=== PATIENT | male | born 1955 | race Caucasian/White ===

== ENCOUNTER 2019-01-01 12:09 | Inpatient (IN) ==
[2019-01-01 12:42] LABS: BASO# 0.03 X1000 (0.0-0.2); BASO% 0.4 % (0.0-0.8); EOS# 0.37 X1000 (0.0-0.7); EOS% 4.5 % (0.0-10.0); HEMATOCRIT 44.2 % (42.0-52.0); HEMOGLOBIN 14.9 g/dL (14.0-18.0); LYMPH# 2.01 X1000 (1.2-3.4); LYMPH% 24.3 % (20.5-51.1); MCH 30.8 PG (27-31); MCHC 33.7 g/dL (33-37); MCV 91.5 FL (81-99); MONO# 0.78 X1000 (0.11-0.59); MONO% 9.4 % (1.7-9.3); MPV 9.3 FL (7.4-10.4); NEUT# 5.08 X1000 (1.4-6.5); NEUT% 61.4 % (42.2-75.2); PLT 309 X1000 (130-400); RBC 4.83 XMIL (4.7-6.1); RDW 13.4 % (11.5-14.5); WBC 8.27 X1000 (4.8-10.8)
[2019-01-01] MEDS ORDERED: ZOFRAN IV ONE (13:07)
[2019-01-01] MEDS ORDERED: G.I. COCKTAIL PO ONE (13:08)
[2019-01-01 13:12] LABS: AGAP 10; ALB/GLOB RATIO 1.1; ALBUMIN 4.1 g/dL (3.5-5.0); ALKALINE PHOSPHATASE 65 U/L (32-122); AMYLASE 65 U/L (20-200); BUN 11 mg/dL (8-22); CALCIUM 9.6 mg/dL (8.8-10.2); CHLORIDE 103 mmol/L (98-107); COSMO 281; CREATININE 0.9 mg/dL (0.7-1.2); ESTIMATED GFR > 60; GLUCOSE 102 mg/dL (70-104); GOT 21 U/L (10-34); GPT 21 U/L (10-44); LIPASE 30 U/L (13-60); POTASSIUM 4.1 mmol/L (3.5-5.1); SODIUM 141 mmol/L (136-145); TCO2 28 mmol/L (25-35); TOTAL BILIRUBIN 0.31 mg/dL (0.20-1.00); TOTAL PROTEIN 7.9 g/dL (6.3-8.3)
[2019-01-01 13:18] LABS: URINE SOURCE CLEAN CATCH
[2019-01-01 13:21] LABS: BILIRUBIN URINE NEGATIVE (NEGATIVE); BLOOD URINE NEGATIVE (NEGATIVE); COLOR YELLOW; GLUCOSE URINE NEGATIVE (NEGATIVE); KETONE URINE NEGATIVE (NEGATIVE); LEUKOCYTES URINE TRACE (NEGATIVE); NITRITE URINE NEGATIVE (NEGATIVE); PH URINE 7.5; PROTEIN URINE NEGATIVE (NEGATIVE); TURBIDITY URINE CLEAR (CLEAR); UROBILINOGEN URINE NORMAL (NORMAL)
[2019-01-01 13:22] LABS: UR EPITHELIAL CELLS <10 /HPF (<10); URINE BACTERIA NEGATIVE /HPF; URINE RBC <10 /HPF (<10); URINE WBC <10 /HPF (<10)
--- NOTE | 2019-01-01 13:29 | Diag Imaging Result Doc PS360 ---
EXAM: CHEST-2 VIEWS HISTORY: cough TECHNIQUE: Chest two views COMPARISON: 11/24/2014 FINDINGS: The lungs are well expanded. The heart is not enlarged. The vessels are not distended. There are no infiltrates. No pleural effusions. There are scattered granuloma. IMPRESSION: No pneumonia. Electronically signed by Lalito Astorga 01/01/2019 1:26 PM
--- NOTE | 2019-01-01 14:34 | Diag Imaging Result Doc PS360 ---
EXAM: CT ABD/PELVIS W/IV CONT ONLY HISTORY: abd pain TECHNIQUE: CT abdomen and pelvis with intravenous contrast COMPARISON: None. FINDINGS: The gallbladder is contracted. There is fatty infiltration of the liver. Normal spleen, pancreas, and adrenal glands. There are small renal cysts. No hydronephrosis. Prominent atherosclerosis. No aortic aneurysm. There are scattered colonic diverticula. No bowel obstruction. Normal appendix. No abscess. No ascites. The urinary bladder is moderately distended and is normal. The prostate is not enlarged. There is a fat filled left inguinal hernia. There is also a fat filled umbilical hernia. IMPRESSION: 1.Fatty infiltration of the liver 2.Diverticulosis 3.Prominent atherosclerosis 4.Fat filled umbilical hernia and left inguinal hernia This exam was performed using automated exposure control, adjustment of mA or kV according to patient size, and/or use of iterative reconstruction technique. Electronically signed by Lalito Astorga 01/01/2019 2:31 PM
--- NOTE | 2019-01-01 16:25 | PROVIDER DOCUMENTATION ---
This chart was entered by Marina Denton Scribe, acting as scribe for William Pereira CRNP. HPI-Abdominal Pain/GI Problem - General Chief Complaint: Abdominal Pain Stated Complaint: SICK/CANT EAT/COUGHING Time Seen by Provider: 01/01/19 12:24 Source: patient Allergies/Adverse Reactions: Patient Allergies Allergy/AdvReac Type Severity Reaction Status Date / Time Sulfa (Sulfonamide Allergy Intermediate HIVES Verified 07/07/17 07:30 Antibiotics) Home Medications: Home Medication List Medication Instructions Recorded Confirmed Last Taken Type Amlodipine [Norvasc] 5 mg PO DAILY 10/30/13 07/07/17 10/30/13 07:30 History BENAZEpril [Lotensin] 20 mg PO DAILY 10/30/13 07/07/17 10/30/13 07:30 History Esomeprazole [Nexium] 40 mg PO DAILY 10/30/13 07/07/17 10/30/13 07:30 History Hydrochlorothiazide 25 mg PO DAILY 10/30/13 07/07/17 10/30/13 07:30 History Meloxicam [Mobic] 15 mg PO DAILY 10/30/13 07/07/17 10/30/13 07:30 History Trazodone [Desyrel] 100 mg PO QHS 10/30/13 07/07/17 10/29/13 21:00 History Aspirin 81 mg PO DAILY #0 chewtab 11/07/13 07/07/17 Unknown Rx Hydrocodone/Acetaminophen [[place] 1 each PO Q4-6H PRN PRN #20 tablet 07/01/15 07/07/17 Unknown Rx 5-325 Tablet] Methocarbamol [Robaxin-750] 1,500 mg PO 4XDAY #40 tablet 07/01/15 07/07/17 Unknown Rx Cyclobenzaprine [Flexeril] 10 mg PO HS #15 tablet 07/07/17 Unknown Rx Naproxen [Naprosyn] 500 mg PO BID #20 tablet 07/07/17 Unknown Rx - History of Present Illness-ABD Nature of Presenting Problems: 63yom c/o generalized abdominal pain with nausea and cough for one week. Pain is worse to left upper quadrant/left rib area. He reports the pain worsens after he eats or drinks coffee, but it also occurs at random times intermittently. He reports he is a nonsmoker. He denies fever, vomiting, diarrhea. Also reports exertional SOB that is chronic. He is non-toxic in appearance. Abdominal Pain Onset Location: reports: generalized abdomen Pain Radiation: reports: no radiation Quality of Pain: reports: aching Severity in ED: reports: mild Onset/Duration: reports: 1 week ago Timing: reports: still present, intermittent, constant Activities at Onset: reports: none Modifying Factors: improves with: nothing Associated Symptoms: reports: cough, nausea. denies: chest pain, shortness of breath Similar Symptoms Previously?: No Recently seen or treated by another doctor?: No Review of Systems - Adult - REVIEW OF SYSTEMS - ADULT Constitutional: denies: chills, fever Eyes: denies: discharge, dry eyes Ears, Nose, Mouth & Throat: denies: ear discharge, ear pain Cardiovascular: denies: chest pain, palpitations Respiratory: reports: cough. denies: shortness of breath Gastrointestinal: reports: abdominal pain, nausea. denies: diarrhea, vomiting Genitourinary: denies: dysuria, hematuria Musculoskeletal: denies: back pain, muscle aches, muscle weakness Integumentary: reports: no symptoms reported Neurological: denies: dizziness/vertigo, headache/migraines Psychiatric: reports: no symptoms reported Endocrine: reports: no symptoms reported Hematologic/Lymphatic: reports: no symptoms reported Allergic/Immunologic: reports: no symptoms reported All Other Systems: Reviewed and Negative Past History - Adult - PAST MEDICAL HISTORY-ADULT Review of Records: reports: Old Records Reviewed, Nursing Assessment Review, Medications Reviewed Cardiovascular: reports: HTN, hyperlipidemia, SD (6 yrs ago), other (hx left bundle branch block) Respiratory: reports: denies history - PRIOR SURGERIES/PROCEDURES Surgical/Procedure History: reports: other (hemorrhoidectomy) - PRIOR HOSPITALIZATIONS Prior Hospitalizations: reports: for similar symptoms - IMMUNIZATION STATUS Childhood Immunizations: See Nurse Assessment Flu Vaccine: See Nurse Assessment - FAMILY HISTORY Family History: reviewed, not pertinent - SOCIAL HISTORY Smoking: quit greater than 1 year Substance Use: alcohol Alcohol Use Frequency: occasionally Living Situation: family Physical Exam-General - PHYSICAL EXAM-ADULT Initial Vital Signs Reviewed: Yes - CONSTITUTIONAL General Appearance: alert, no apparent distress. negative: lethargic, slow to respond - EYES Eyes: PERRL/EOMI, pink conjunctivae - HEAD, EARS, NOSE, MOUTH & THROAT HENMT: normocephalic/atraumatic, moist mucous membranes - NECK Neck: non-tender, full range of motion, supple, normal inspection - RESPIRATORY Respiratory: chest non-tender, lungs clear, normal breath sounds, no pleuratic chest pain, no respiratory distress, no accessory muscle use. negative: rhonchi, wheezing - CARDIOVASCULAR Cardiovascular: normal peripheral pulses, regular rate, rhythm, no edema, no gallop, no murmur, tachycardia - GASTROINTESTINAL (ABDOMEN) Abdominal Exam: soft, no pulsatile mass, tenderness (L-sided). negative: distended, guarding, rigid, rebound - MUSCULOSKELETAL Back Exam: normal inspection Extremity: normal range of motion, non-tender, normal gait, normal inspection, no pedal edema - SKIN Integumentary: normal color, warm/dry. negative: cyanosis, diaphoresis, jaundice, mottled, pallor - NEUROLOGIC Neurologic: grossly normal, no motor/sensory deficits - PSYCHIATRIC Psych/Mental Status: normal mood/affect, normal thought content, normal thought process, oriented x 3 Progress - PLAN OF CARE/RESULTS Progress/Plan/Lab Results: Vital Signs - 8 hr 01/01/19 12:12 Temperature 98 F Pulse Rate 104 H Respiratory Rate 20 Blood Pressure 165/84 O2 Sat by Pulse Oximetry 94 L Laboratory Results - last 24 hr 01/01/19 12:20 WBC 8.27 RBC 4.83 Hgb 14.9 Hct 44.2 MCV 91.5 MCH 30.8 MCHC 33.7 RDW Std Deviation 13.4 Plt Count 309 MPV 9.3 Immature Gran % (Auto) 0.0 Neut % (Auto) 61.4 Lymph % (Auto) 24.3 [place] % (Auto) 9.4 H Eos % (Auto) 4.5 Baso % (Auto) 0.4 Immature Gran # (Auto) 0.00 Neut # (Auto) 5.08 Lymph # (Auto) 2.01 [place] # (Auto) 0.78 H Eos # (Auto) 0.37 Baso # (Auto) 0.03 Orders Category Date Time Status Nursing- Obtain EKG ONCE Care 01/01/19 13:07 Active CHEST-2 VIEWS [RAD] Stat Exams 01/01/19 13:07 Ordered AMYLASE [CHEM] Stat Lab 01/01/19 12:20 Received CBC WITH ELECTRONIC DIFF [HEME] Stat Lab 01/01/19 12:20 Completed COMPREHENSIVE METABOLIC PANEL [CHEM] Stat Lab 01/01/19 12:20 Received LIPASE [CHEM] Stat Lab 01/01/19 12:20 Received TROPONIN T Stat Lab 01/01/19 13:07 Uncollected URINALYSIS W/POSS RFLX CULT [URINALYSIS] Stat Lab 01/01/19 12:34 Uncollected Lido/Darden Alk/Al&mg Hydrox [G.i. Cocktail] Med 01/01/19 13:08 Discontinued 30 ml PO NOW ONE Ondansetron [Zofran] Med 01/01/19 13:07 Discontinued 4 mg IV NOW ONE EKG [EKG] Stat Ther 01/01/19 13:07 Ordered Heart Score 5. Discussed case with Dr. Pride who recommends admission for atypical chest pain due to pain being in LUQ. Pt also reports "a funny feeling in my jaw". Offered admission and pt declined. He is a&ox4 and neurologically intact. Pt did agree to repeat heart enzymes. Discussed AMA with pt- he now agrees to be admitted. Admitting HPS paged at [phone]. Result Diagrams: 01/01/19 12:20 01/01/19 12:20 - EKG 1 Time of EKG reading by physician:: 13:49 EKG Read and Signed by:: Rolando Pride EKG Interpretation (*Must complete 3 of following elements*): Abnormal Rate: 86 Rhythm: Normal sinus rhythm QRS: LBB ST Wave: elevated - XRAY 1 XRAY Study: Chest Impression: Abnormal (FINDINGS: The lungs are well expanded. The heart is not enlarged. The vessels are not distended. There are no infiltrates. No pleural effusions. There are scattered granuloma. IMPRESSION: No pneumonia.) - CONSULTS/PCP/HOSPITALIST Notification #1 *Consult/PCP/Hospitalist*: VANESSA Elizalde H[employer]BER Time Discussed: 15:55 Reason/Comments: admit for atypical chest pain Consult Disposition: Admit (States she will discuss with Dr. Murry) Departure - Departure Date of Disposition Decision: 01/01/19 Time of Disposition Decision: 15:57 DIAGNOSIS: Atypical chest pain Disposition: ADMITTED INPATIENT 09 Certified Medical Emergency: Emergent Condition: Stable Referrals and Follow-Ups: Marcin Huang MD [Primary Care Provider] - - Critical Care Note This patient required my direct & personal management of CC.: No Attestation - Physician/ BLAYNE Attestation Patient care was provided by Advanced Practice Provider:: Yes Advanced Practice Provider:: William Pereira Advanced Practice Provider documentation review:: The Mid-level provider documentation, treatment plan and medical decision making was reviewed by the physician who agrees with all treatment and medical decision making by the MLP. The physician spent face to face time with patient:: No Advanced Practice Provider documentation review:: Supervising physician onsite and consulted in the evaluation and care of this patient. The physician did not have a face to face encounter with the patient. This chart was documented by the indicated scribe, (Marina Denton, Jeffry) a nd accurately reflects the services I performed and decisions made by me, William Pereira CRNP, as attested by the provider's signature.
--- NOTE | 2019-01-01 17:29 | HISTORY AND PHYSICAL ---
PRIMARY CARE PHYSICIAN: Dr. Marcin Huang. HISTORY OF PRESENT ILLNESS: This is a 63-year-old with a previous history of hypertension and hypercholesterolemia. Apparently had a myocardial infarction. He said he had a small myocardial infarction back around 2006 and he said he did not get any stents, but was treated medically. He does not give any report of congestive heart failure. He also had a staph infection in the left groin which had to be excised; that was about 4 years ago by his report. So, presenting complaint was this jaw pain which he has had for about 4 days. He has had a cough for 1.5 weeks, which is dry. But that the jaw pain is bilateral and it seems to wake down into his neck and he gets nausea and this will last for several minutes at a time. He denies palpitations. Denies anterior chest pain or squeezing or pressure sensation. No pain in the left arm or between the shoulder blades. PAST SURGICAL HISTORY: Hemorrhoidectomy and no other reports. FAMILY HISTORY: Father had cancer and Oliverio's disease in his mother, I believe. SOCIAL HISTORY: He is raising his granddaughter who is 14. He lives here in [place]. He quit smoking 37 years ago. He does not drink alcohol. No illicit drugs. ALLERGIES: Allergic to sulfa drugs, causes a rash. REVIEW OF SYSTEMS: Denies any change in hearing or visual acuity. No fever or chills. No gain or loss.Respiratory: No increased work of breathing until maybe about 2 weeks ago. Has a little more dyspnea with exertion. He has had a dry cough for about 1.5 weeks. The left side of his rib cage is sore. He thinks that is from coughing. He developed some jaw pain, in both jaws and then would seem to radiate down into his throat and then he would develop nausea. He has had 3 or 4 these a day for the last 4 days. Not necessarily related to exertion or eating, but he will have nausea with these events. Denies any anterior chest pain or chest wall discomfort. He denies any adenopathy or neck discomfort. As noted, a little bit increased dyspnea on exertion in the last couple weeks, dry cough for 1.5 weeks. Cardiovascular: As mentioned. GI/: No change in bowel habits. No gross hematuria or dysuria. Musculoskeletal/Neurologic: No specific complaints. No focal complaints. Endocrinologic/Hematologic: No significant history. PHYSICAL EXAMINATION: VITAL SIGNS: In the emergency room temp 98 degrees, pulse 104, respirations 20, blood pressure 165/84, O2 saturation is 94%. HEENT: Pupils are equal and round. LUNGS: Clear in all lung rizzo anterior and posterior. CARDIOVASCULAR: Regular rhythm and rate without murmur or S3. ABDOMEN: Soft, nondistended, nontender. SKIN: Warm and dry. NECK: Supple. No thyromegaly. LYMPHATIC: No adenopathy, cervical, supraclavicular, or axillary adenopathy. LAB: White count was 8,270, hematocrit is 44, platelet count 309,000. Sodium 141, potassium 4.1, chloride 103, BUN 11, creatinine 0.9, calcium 9.6, AST 21, ALT 21, alkaline phosphatase 65, albumin is 4.1. Urinalysis unremarkable. Abdominal and pelvic CT: Prominent atherosclerosis, fat filled umbilical hernia, and left inguinal hernia. Chest x-ray: No pneumonia. No infiltrate. Lungs well expanded. Heart is not enlarged. Vessels were not distended. His troponin was less than 0.01. EKG: He has a left bundle branch block. Appears to be sinus rhythm. ASSESSMENT AND PLAN: 1. Atypical jaw pain with radiation down into upper chest and nausea with a known history of coronary artery disease. He apparently had a myocardial infarction back around 2006. Really I think we need to check serial cardiac enzymes and EKG and rule him out for unstable angina. I will put him on a proton pump inhibitor. We will give him an aspirin, which I think he takes every day already, and watch his blood pressure. Check his left ventricular function with an echocardiogram. In looking back, he has had a myocardial perfusion scan back in 2013 and at that time had no chest pain with the test. He had abnormal cardiac perfusion imaging with a fixed defect involving the interventricular septum as well as inferior wall. He had depressed left ventricular function. His ejection fraction was calculated at about 36% at that time. So he had a echocardiogram done in 2013 as well. Left ventricular systolic function was grossly estimated to be an ejection fraction 45 to 50% at that time. Wall motion abnormalities were difficult to assess accurately due to poor endocardial resolution. Right ventricle was borderline dilated. Estimated PA pressure within normal limits. Mildly dilated RA, mildly dilated LA, and mild to moderate MR. We will check an echocardiogram. 2. History of hypertension. Watch his blood pressures. 3. Hypercholesterolemia. We will check a lipid profile again in the morning. We will check a hemoglobin A1c as well. He has no history of diabetes. Check his thyroid and B12 and folate. Ask Cardiology to help assess. cc: Kenny Murry MD
[2019-01-01] MEDS ORDERED: ZOFRAN IV PRN (18:56)
[2019-01-01] MEDS ORDERED: NORCO-5 PO PRN (18:56)
[2019-01-01] MEDS ORDERED: TYLENOL PO PRN (18:56)
[2019-01-01] MEDS: FLEXERIL PO SCH (21:36)
[2019-01-01] MEDS: DESYREL PO SCH (21:36)
[2019-01-01] MEDS: ASPIRIN PO SCH (21:36)
[2019-01-01] MEDS: ROBAXIN PO SCH (21:36)
[2019-01-02] MEDS: PRILOSEC PO SCH ×2 (05:57→06:01)
[2019-01-02 06:35] LABS: BASO# 0.04 X1000 (0.0-0.2); BASO% 0.6 % (0.0-0.8); EOS# 0.45 X1000 (0.0-0.7); EOS% 6.4 % (0.0-10.0); HEMATOCRIT 41.5 % (42.0-52.0); HEMOGLOBIN 13.5 g/dL (14.0-18.0); LYMPH# 1.72 X1000 (1.2-3.4); LYMPH% 24.4 % (20.5-51.1); MCH 30.5 PG (27-31); MCHC 32.5 g/dL (33-37); MCV 93.9 FL (81-99); MONO# 0.65 X1000 (0.11-0.59); MONO% 9.2 % (1.7-9.3); MPV 9.5 FL (7.4-10.4); NEUT# 4.18 X1000 (1.4-6.5); NEUT% 59.4 % (42.2-75.2); PLT 257 X1000 (130-400); RBC 4.42 XMIL (4.7-6.1); RDW 13.6 % (11.5-14.5); WBC 7.04 X1000 (4.8-10.8)
[2019-01-02 07:05] LABS: AGAP 10; BUN 13 mg/dL (8-22); CALCIUM 8.7 mg/dL (8.8-10.2); CHLORIDE 104 mmol/L (98-107); COSMO 289; CREATININE 0.8 mg/dL (0.7-1.2); ESTIMATED GFR > 60; GLUCOSE 93 mg/dL (70-104); MAGNESIUM 2.2 mg/dL (1.5-2.7); SODIUM 145 mmol/L (136-145); TCO2 31 mmol/L (25-35)
[2019-01-02 07:15] LABS: T4 6.92 ug/dL (4.60-12.00); TSH 2.78 uIUmL (0.27-4.20)
[2019-01-02] MEDS: ROBAXIN PO SCH ×6 (07:35→20:44)
--- NOTE | 2019-01-02 07:50 | EKG Report ---
Test Performed on : 01/02/2019 06:56:52 AM Test Reason : jaw pain Blood Pressure : / mmHG Vent. Rate : 064 BPM Atrial Rate : 064 BPM P-R Int : 184 ms QRS Dur : 172 ms QT Int : 488 ms P-R-T Axes : 059 -26 157 degrees QTc Int : 503 ms Normal sinus rhythm. Left bundle branch block Abnormal ECG When compared with ECG of 04-NOV-2013 06:08, Nonspecific T wave abnormality now evident in Inferior leads T wave inversion more evident in Lateral leads Unconfirmed Result
[2019-01-02] MEDS: HYDROCHLOROTHIAZIDE PO SCH ×2 (07:56→08:19)
[2019-01-02] MEDS: MOBIC PO SCH ×2 (07:56→08:19)
[2019-01-02] MEDS: LOTENSIN PO SCH ×2 (07:56→08:19)
[2019-01-02] MEDS: ASPIRIN PO SCH ×2 (07:56→08:19)
[2019-01-02] MEDS: NORVASC PO SCH ×2 (07:56→08:19)
[2019-01-02] MEDS ORDERED: NEXIUM PO SCH (09:00)
[2019-01-02] MEDS ORDERED: ASPIRIN PO SCH (09:00)
--- NOTE | 2019-01-02 10:05 | EKG Report ---
Test Performed on : 01/01/2019 1:49:18 PM Test Reason : upper abdominal pain Blood Pressure : / mmHG Vent. Rate : 086 BPM Atrial Rate : 086 BPM P-R Int : 174 ms QRS Dur : 170 ms QT Int : 422 ms P-R-T Axes : 041 -23 130 degrees QTc Int : 504 ms Normal sinus rhythm. Left bundle branch block Abnormal ECG No previous ECGs available Unconfirmed Result
--- NOTE | 2019-01-02 10:05 | EKG Report ---
Test Performed on : 01/01/2019 4:37:19 PM Test Reason : CP Blood Pressure : / mmHG Vent. Rate : 089 BPM Atrial Rate : 089 BPM P-R Int : 172 ms QRS Dur : 160 ms QT Int : 426 ms P-R-T Axes : 068 -12 116 degrees QTc Int : 518 ms Normal sinus rhythm. Left bundle branch block Abnormal ECG When compared with ECG of 01-JAN-2019 13:49, (Unconfirmed) No significant change was found Unconfirmed Result
--- NOTE | 2019-01-02 14:17 | CARDIOLOGY CONSULTATION ---
DATE: 01/02/2019 HISTORY OF PRESENT ILLNESS: Ms. Hernandez is a 63-year-old, gentleman with a history of hypertension and hypercholesterolemia. Had a cardiac catheterization in 2006 which, per patient, had minimal blockages. He comes with complaints of having had heart failure before as well. However, of late, he has noticed episodes of jaw pain and some abdominal discomfort associated with the jaw pain which he describes as nausea. Pain is bilateral to the jaw. It goes down to his neck, which lasts for several minutes. There was no retrosternal chest pain and no radiation to the arms. He is an ex-smoker, has not smoked in many years. There are no palpitations. There is no dizziness or syncope. He has a history of hypertension and has been taking his medications regularly. REVIEW OF SYSTEMS: A 14 point review of systems was done. GI System: There is no history of hematemesis or melena. Central Nervous System: No focal weakness to suggest a CVA or TIA. Genitourinary System: There is no dysuria or hematuria. Respiratory System: There is no history of cough, expectoration, or hemoptysis. There is no history of fevers or chills. PAST MEDICAL HISTORY: 1. Left bundle branch block. 2. Cardiomyopathy with an ejection fraction of 40 to 45 percent in the past. 3. Hypertension. 4. Hyperlipidemia. 5. MRSA. 6. History of cellulitis in 2013 to his right thigh. 7. History of venous insufficiency. MEDICATIONS: Currently, his medications include aspirin, amlodipine, benazepril. Home medication of pravastatin, Flexeril, hydrochlorothiazide, meloxicam as needed. PHYSICAL EXAMINATION: Vital Signs: Blood pressure was 134/54. Cardiovascular System: Normal jugular venous pressure. There was no thyromegaly. There was no carotid bruit. First and second heart sounds were heard. Left bundle branch block. There is no S3-S4 gallop. Respiratory System: Normal air entry. There were no crepitations or rhonchi. Abdomen: Obese soft, nontender. There was no guarding or rigidity. Bowel sounds were heard. Central Nervous System: Alert and was moving all 4 extremities. Extremities: Examination of extremities revealed no pedal edema. HEENT: Atraumatic, normocephalic. Pupils were equal and reacting to light. Patient had poor dentition. ASSESSMENT: Mr. Anton Hernandez is a 63-year-old, gentleman with a history of hypertension, left ventricular dysfunction in the past, hyperlipidemia, chronic left bundle branch block. He comes in with complaints of having recurrent episodes of jaw pain. His cardiac enzymes were negative. PLAN: 1. We will set him up to undergo a Lexiscan Cardiolite stress test to assess for and rule out ischemia given his left bundle branch block. 2. LV dysfunction. We will get an echocardiogram to assess cardiac and valvular function. He is on beta-blockers and ALINE inhibitors. I have not made any changes at the present time. 3. Hyperlipidemia. Continue with pravastatin. 4. He is also on aspirin. I have not made any changes other than the dosage to 81 mg a day. Thank you for the consult. We will follow hospital course. cc: Kamaljit Laura MD
--- NOTE | 2019-01-02 14:17 | ECHO REPORT ---
ORDER DATE: 01/02/2019 INDICATION FOR THE STUDY: Abdominal pain, hypertension, coronary disease. FINDINGS: 1. The right atrium appears normal in size at 3.5 cm. 2. Mild tricuspid regurgitation. RV systolic pressure of 32. 3. Normal RV size and systolic function. 4. Trace pulmonic insufficiency. 5. Severe left atrial enlargement with a volume index of 41. 6. No mitral prolapse. Mild mitral regurgitation. 7. Dilated left ventricle with an end-diastolic dimension of 6.2. Normal wall thicknesses with a posterior and interventricular septal wall thickness 1.1 cm each. Severe reduction in LV systolic function. The estimated EF is 25%. Severe global hypokinesis is noted. 8. Aortic valve opens well. Trace insufficiency. No evidence of stenosis. 9. Aorta appears normal in visualized segments. 10. No pericardial effusion seen. cc: MD Kenny Gonzalez MD
[2019-01-02] MEDS: FLEXERIL PO SCH (20:44)
[2019-01-02] MEDS: DESYREL PO SCH (20:45)
[2019-01-03] MEDS: PRILOSEC PO SCH (06:07)
[2019-01-03] MEDS ORDERED: ASPIRIN EC PO SCH (09:00)
[2019-01-03] MEDS ORDERED: LEXISCAN ONE (09:12)
[2019-01-03] MEDS: NORVASC PO SCH (10:59)
[2019-01-03] MEDS: MOBIC PO SCH (10:59)
[2019-01-03] MEDS: LOTENSIN PO SCH (10:59)
[2019-01-03] MEDS: HYDROCHLOROTHIAZIDE PO SCH (10:59)
[2019-01-03] MEDS: ROBAXIN PO SCH ×3 (11:02→16:43)
--- NOTE | 2019-01-03 14:56 | Diag Imaging Result Document ---
PROCEDURE NAME: MYOCARDIAL PERF SCAN, STR/REST - 01/03/2019 LEXISCAN CARDIOLITE STRESS TEST: SUMMARY: Lexiscan was infused per standard protocol. There was no chest pain. Stress electrocardiogram was negative for ischemia. Following Lexiscan infusion, Cardiolite was injected, 14.8 mCi of Cardiolite was injected for the rest phase, 44 millicuries of Cardiolite was injected for the stress phase. Images revealed left ventricle was mildly dilated. There was fixed defect in the anterior wall, this is a low-grade fixed defect. There is a large size fixed defect in the inferior wall, moderate to severe grade. In addition, there is fixed defect noted in the inferoseptal and inferoapical wall suggestive of infarct or scar. There is small josue- infarct ischemia in the anteroseptal region. This is a low-grade defect. Left ventricular ejection fraction by gated SPECT was 36. CONCLUSIONS: 1. No chest pain. 2. Baseline left bundle branch block was noted. 3. There is LV dysfunction. Ejection fraction of 36%. Left ventricle was dilated. 4. There is large size, severe grade, fixed defect in the inferior wall diagnostic of infarct or scar, there is fixed defect in the septum inferiorly, there is fixed defect in the inferoapical portion, all suggestive of scar. 5. There is a small-sized low-grade reversibility noted in the anteroseptal wall. This is a cardiomyopathy picture. cc: MD Perlita Alonso PA MTDD
[2019-01-03 16:08] VITALS: BP 135/57
[2019-01-03] MEDS ORDERED: COREG PO ONE (18:33)
--- NOTE | 2019-01-04 05:03 | DISCHARGE SUMMARY ---
ADMISSION DATE: 01/01/2019 DISCHARGE DATE: 01/03/2019 HOSPITAL COURSE: The patient is a 63-year-old gentlemen who came in with atypical chest pain and shortness of breath. Cardiology was consulted. In any case he had a history of CAD. He has CHF I think. He has had a dry cough, atypical chest pain. He was admitted and placed in telemetry, serial enzymes. He underwent testing in which echocardiogram showed an EF of 25%, severe global hypokinesis. Cardiology was consulted and they recommend Lexiscan, beta blockers, ALINE inhibitors. He says he is on those, but he is not on any beta-blockers and his blood pressure is high. He underwent a Lexiscan which showed no significant perfusion defects. He had a large reversible scar. Overall it was interpreted that this was a cardiomyopathy type picture. There is a small sized reversible defect, but felt was likely related to CHF. So any ways we optimized his medications. He was already on Norvasc and Lotensin, but it looks like he has a prescription also for Entresto (sacubitril/valsartan) 49/51 b.i.d., so I would just continue that. I did go ahead and put him on Lasix instead of hydrochlorothiazide, and I am going to start Coreg 6.25 b.i.d. and have him follow up with Cardiology, which I think is Dr. 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 The stress test was negative, workup is negative and is not clear he is not in any decompensated failure and I think he is stable to go home. Other discharge medications are aspirin 81 daily, trazodone which he has got 2 different prescriptions, spironolactone 12.5 daily, Pravachol 20 daily, Norvasc 5 daily, Nexium 40 daily, Entresto 49/51 b.i.d. and Desyrel 150 daily. DISCHARGE CONDITION: Stable. TIME SPENT: Was 32 minutes for discharge. cc: MD Roly Briggs MD Kenneth E. Mashburn
== END 2019-01-03 19:30 | disposition home or self-care (01) | DRG 313 ==
LOC: ED 12:09 → 4N 17:37 → SUATTDRO 17:37
PROVIDERS: ATTEND Internal Medicine
CPT/HCPCS: 71020; 71046; 74177; 78452; 80048; 80053; 80061; 81001; 82150; 82550; 82607; 82746; 83690; 83721; 83735; 83880; 84436; 84443; 84484; 85025; 87088; 93005; 93010; 93017; 93306; 96374; 99285; A9270; A9500; C8929; J2405; J2785; Q9957; Q9967

== ENCOUNTER 2019-08-27 00:31 | Observation (INO) ==
[2019-08-27] MEDS ORDERED: ASPIRIN PO ONE (00:33)
[2019-08-27] MEDS ORDERED: MORPHINE IV ONE ×2 (00:41→03:19)
[2019-08-27] MEDS ORDERED: ZOFRAN IV ONE (00:41)
--- NOTE | 2019-08-27 00:48 | PROVIDER DOCUMENTATION ---
HPI-Chest Pain - General Chief Complaint: Chest Pain Stated Complaint: CHEST PAINS Time Seen by Provider: 08/27/19 00:33 Source: patient Allergies/Adverse Reactions: Patient Allergies Allergy/AdvReac Type Severity Reaction Status Date / Time Sulfa (Sulfonamide Allergy Intermediate HIVES Verified 08/27/19 00:39 Antibiotics) Home Medications: Home Medication List Medication Instructions Recorded Confirmed Last Taken Type Esomeprazole [Nexium] 40 mg PO DAILY 10/30/13 08/10/19 08/10/19 History Aspirin 81 mg PO DAILY #0 chewtab 11/07/13 08/10/19 08/10/19 Rx Pravastatin Sodium [Pravachol] 20 mg PO DAILY 01/01/19 08/10/19 08/10/19 History Sacubitril/Valsartan [Entresto 49 1 ea PO BID 01/01/19 08/10/19 08/10/19 History mg-51 mg Tablet] Spironolactone 12.5 mg PO DAILY 01/01/19 08/10/19 08/10/19 History Trazodone [Desyrel] 150 mg PO HS 01/01/19 08/10/19 08/10/19 History Carvedilol [Coreg] 12.5 mg PO BID 08/10/19 08/10/19 08/10/19 History - History of Present Illness-CP Nature of Presenting Problem: pt 63 yo male w c/o intermittent epigastric and upper abdomen pain x 4 months with constipation, diaphoresis, weakness, and nausea since eating tonight. pt has cardiac HX of bradycardia and HF. pt deneis other sx at this time, pt states pain is pressure with intermittent sharp pains. and does not radiate, is severe in intensity. Location: reports: epigastric, other (upper abdominal pain) Chest Pain Radiation: reports: no radiation Quality of Pain: reports: cramping, pressure, sharp, tightness Severity in ED: severe Onset/Duration: other (intermittant for past 4 months, worse tonight [employer]) Timing: still present, intermittent Context/Activities at Onset: reports: eating (exacerbated by eating) Modifying Factors: improves with: nothing Associated Symptoms: reports: denies symptoms Nitro Today/Relief: no nitro taken today Aspirin Treatment Today: provided by ED Prior Chest Pain/Cardiac Workup: reports: other (has HX of bradycardia and hf, has palns for pacemaker placement) Similar Symptoms Previously?: Yes (intermittant similar pains x 4 months) Recently Seen Here or By Another Healthcare Provider: Yes (seen recently for similar sx, dx constipation) Review of Systems - Adult - REVIEW OF SYSTEMS - ADULT Constitutional: reports: no symptoms reported Eyes: reports: no symptoms reported Ears, Nose, Mouth & Throat: reports: no symptoms reported Cardiovascular: reports: other (weak heart) Respiratory: reports: no symptoms reported Gastrointestinal: reports: see HPI Genitourinary: reports: no symptoms reported Musculoskeletal: reports: no symptoms reported Neurological: reports: no symptoms reported Psychiatric: reports: no symptoms reported Endocrine: reports: no symptoms reported Hematologic/Lymphatic: reports: no symptoms reported Allergic/Immunologic: reports: no symptoms reported All Other Systems: Reviewed and Negative Past History - Adult - PAST MEDICAL HISTORY-ADULT Review of Records: reports: Old Records Reviewed, Nursing Assessment Review, Medications Reviewed Cardiovascular: reports: HTN, hyperlipidemia, HI (6 yrs ago), other (hx left bundle branch block) Respiratory: reports: denies history - PRIOR SURGERIES/PROCEDURES Surgical/Procedure History: reports: other (hemorrhoidectomy) - PRIOR HOSPITALIZATIONS Prior Hospitalizations: reports: for similar symptoms - IMMUNIZATION STATUS Childhood Immunizations: See Nurse Assessment Flu Vaccine: See Nurse Assessment Physical Exam-General - PHYSICAL EXAM-ADULT Initial Vital Signs Reviewed: Yes - CONSTITUTIONAL General Appearance: moderate distress - EYES Eyes: PERRL/EOMI, pink conjunctivae - HEAD, EARS, NOSE, MOUTH & THROAT HENMT: normocephalic/atraumatic, moist mucous membranes - NECK Neck: non-tender, full range of motion - RESPIRATORY Respiratory: chest non-tender, lungs clear, normal breath sounds, no pleuratic chest pain, no respiratory distress - CARDIOVASCULAR Cardiovascular: normal peripheral pulses, regular rate, rhythm, no edema - GASTROINTESTINAL (ABDOMEN) Abdominal Exam: normal bowel sounds, distended, tenderness (tender in upper abdomen). negative: Mitchell's sign - LYMPHATIC Lymphatic: no adenopathy - MUSCULOSKELETAL Back Exam: normal inspection, no CVA tenderness Extremity: normal range of motion, non-tender, normal gait - SKIN Integumentary: normal color, normal turgor, warm/dry - NEUROLOGIC Neurologic: stop attacher II-XII nml as tested, grossly normal - PSYCHIATRIC Psych/Mental Status: normal mood/affect, normal thought content, normal thought process, oriented x 3 - HEART Score HEART Score: History: Moderately Suspicious HEART Score: ECG: Non-Specific Repolarization Disturbance/LBBB/PM HEART Score: Age: 45-65 Years HEART Score: Risk Factors for Atherosclerotic Disease: > or = 3 Risk Factors or History of Atherosclerotic Disease HEART Score: Troponin: < or = Normal Limit Total HEART Score:: 5 Progress - PLAN OF CARE/RESULTS Progress/Plan/Lab Results: Vital Signs - 8 hr 08/27/19 00:36 08/27/19 05:22 Temperature 97.6 F Pulse Rate 67 51 L Respiratory Rate 16 16 Blood Pressure 174/82 122/71 O2 Sat by Pulse Oximetry 96 95 Laboratory Results - last 24 hr 08/27/19 08/27/19 08/27/19 00:47 00:47 00:47 WBC 9.47 RBC 4.62 L Hgb 14.2 Hct 42.8 MCV 92.6 MCH 30.7 MCHC 33.2 RDW Std Deviation 13.7 Plt Count 278 MPV 9.5 Immature Gran % (Auto) 0.2 Neut % (Auto) 60.6 Lymph % (Auto) 23.3 Bollinger % (Auto) 11.3 H Eos % (Auto) 4.2 Baso % (Auto) 0.4 Immature Gran # (Auto) 0.02 Neut # (Auto) 5.73 Lymph # (Auto) 2.21 Bollinger # (Auto) 1.07 H Eos # (Auto) 0.40 Baso # (Auto) 0.04 PT INR PTT (Actin FS) Sodium 141 Potassium 4.4 Chloride 105 Carbon Dioxide 26 Anion Gap 11 BUN 14 Creatinine 0.9 Estimated GFR/1.73 m2 > 60 BUN/Creatinine Ratio 16 Glucose 132 H Calculated Osmolality 284 Calcium 9.5 Total Bilirubin 0.30 AST 18 ALT 18 Alkaline Phosphatase 65 Creatine Kinase 51 Troponin T Xpx-V-Nvzhbifvgis Pept 101 Total Protein 7.9 Albumin 4.3 Globulin 4.0 Albumin/Globulin Ratio 1.0 Amylase 71 Lipase 40 Plasma Lactate 08/27/19 08/27/19 08/27/19 00:47 00:47 04:50 WBC RBC Hgb Hct MCV MCH MCHC RDW Std Deviation Plt Count MPV Immature Gran % (Auto) Neut % (Auto) Lymph % (Auto) Bollinger % (Auto) Eos % (Auto) Baso % (Auto) Immature Gran # (Auto) Neut # (Auto) Lymph # (Auto) Bollinger # (Auto) Eos # (Auto) Baso # (Auto) PT 12.5 INR 0.89 PTT (Actin FS) 30.7 Sodium Potassium Chloride Carbon Dioxide Anion Gap BUN Creatinine Estimated GFR/1.73 m2 BUN/Creatinine Ratio Glucose Calculated Osmolality Calcium Total Bilirubin AST ALT Alkaline Phosphatase Creatine Kinase Troponin T < 0.010 Shv-E-[place] Pept Total Protein Albumin Globulin Albumin/Globulin Ratio Amylase Lipase Plasma Lactate 0.5 08/27/19 05:30 WBC RBC Hgb Hct MCV MCH MCHC RDW Std Deviation Plt Count MPV Immature Gran % (Auto) Neut % (Auto) Lymph % (Auto) Bollinger % (Auto) Eos % (Auto) Baso % (Auto) Immature Gran # (Auto) Neut # (Auto) Lymph # (Auto) Bollinger # (Auto) Eos # (Auto) Baso # (Auto) PT INR PTT (Actin FS) Sodium Potassium Chloride Carbon Dioxide Anion Gap BUN Creatinine Estimated GFR/1.73 m2 BUN/Creatinine Ratio Glucose Calculated Osmolality Calcium Total Bilirubin AST ALT Alkaline Phosphatase Creatine Kinase Troponin T < 0.010 Wvs-P-Iprrlpbhifh Pept Total Protein Albumin Globulin Albumin/Globulin Ratio Amylase Lipase Plasma Lactate Orders Category Date Time Status Cardiac Monitoring DIRECTED Care 08/27/19 00:33 Active Oxygen Therapy- ED Nursing DIRECTED Care 08/27/19 00:33 Active Saline Loc NOW Care 08/27/19 00:33 Active Soap Suds Enema DIRECTED Care 08/27/19 01:[address] ABD/PELVIS W/IV CONT ONLY [CT] Stat Exams 08/27/19 01:55 Taken AMYLASE [CHEM] Stat Lab 08/27/19 00:47 Completed CBC WITH ELECTRONIC DIFF [HEME] Stat Lab 08/27/19 00:47 Completed CK PROFILE [SP CHEM] Stat Lab 08/27/19 00:47 Completed COMPREHENSIVE METABOLIC PANEL [CHEM] Stat Lab 08/27/19 00:47 Completed LACTATE, PLASMA [CHEM] Stat Lab 08/27/19 04:50 Completed LIPASE [CHEM] Stat Lab 08/27/19 00:47 Completed PRO B-NATRIURETIC PEPTIDE Stat Lab 08/27/19 00:47 Completed PROTIME WITH INR [COAG] Stat Lab 08/27/19 00:47 Completed PTT [COAG] Stat Lab 08/27/19 00:47 Completed TROPONIN T Stat Lab 08/27/19 00:47 Completed TROPONIN T Stat Lab 08/27/19 05:30 Completed TROPONIN T Stat Lab 08/27/19 06:14 Ordered Aspirin Med 08/27/19 00:33 Discontinued 325 mg PO NOW ONE Lido/Darden Alk/Al&mg Hydrox [G.i. Cocktail] Med 08/27/19 03:59 Discontinued 30 ml PO NOW ONE Morphine Med 08/27/19 00:41 Discontinued 2 mg IV NOW ONE Morphine Med 08/27/19 03:19 Discontinued 2 mg IV NOW ONE Nitroglycerin Med 08/27/19 05:34 Discontinued 0.5 inch TOP NOW ONE Ondansetron [Zofran] Med 08/27/19 00:41 Discontinued 4 mg IV NOW ONE CP/SOB/Palp >45 yrs of Age Stat Oth 08/27/19 00:33 Ordered EKG [EKG] Stat Ther 08/27/19 00:33 Draft EKG [EKG] Stat Ther 08/27/19 05:25 Draft Result Diagrams: 08/27/19 00:47 08/27/19 00:47 - REASSESSMENT Reassessment #1 Time Reassessed: 01:50 Status: worsening (pt vomiting, green in color, pain is worse. will get CT of abd and pelvis with IV contrast.) Reassessment #2 Time Reassessed: 03:20 Status: other (continues to have pain. CT negative for acute findings. Morphine 2 mg administered. will give enema) Reassessment #3 Time Reassessed: 05:48 Status: unchanged (CT abd and pelvis neg. 2nd trop negative. Lactate negative. will admit) - CONSULTS/PCP/HOSPITALIST Notification #1 *Consult/PCP/Hospitalist*: d/w Dr Mccormack Time Discussed: 06:38 Consult Disposition: Admit - CHANGE OF SHIFT REPORT (ED Provider) 1 Report Given [facility]: 01:12 Items Pending: Labs Departure - Departure Date of Disposition Decision: 08/27/19 Time of Disposition Decision: 06:14 DIAGNOSIS: Chest pain, Abdominal pain, Nausea & vomiting Disposition: ADMITTED INPATIENT 09 Certified Medical Emergency: Emergent Condition: Stable Referrals and Follow-Ups: Marcin Huang MD [Primary Care Provider] - - Critical Care Note This patient required my direct & personal management of CC.: No Attestation - Physician/ BLAYNE Attestation Patient care was provided by Advanced Practice Provider:: Yes Advanced Practice Provider:: Claire Fagan Advanced Practice Provider documentation review:: The Mid-level provider documentation, treatment plan and medical decision making was reviewed by the physician who agrees with all treatment and medical decision making by the MLP. The physician spent face to face time with patient:: Yes (gave report to Dr loving at 112) Advanced Practice Provider documentation review:: Supervising physician onsite and consulted in the evaluation and care of this patient. The physician did have a face to face encounter with the patient.
[2019-08-27 01:17] LABS: BASO# 0.04 X1000 (0.0-0.2); BASO% 0.4 % (0.0-0.8); EOS% 4.2 % (0.0-10.0); HEMATOCRIT 42.8 % (42.0-52.0); HEMOGLOBIN 14.2 g/dL (14.0-18.0); IMM GRAN# 0.02 X1000 (0.0-0.04); IMM GRAN% 0.2 % (0.0-0.5); LYMPH# 2.21 X1000 (1.2-3.4); LYMPH% 23.3 % (20.5-51.1); MCH 30.7 PG (27-31); MCHC 33.2 g/dL (33-37); MCV 92.6 FL (81-99); MONO# 1.07 X1000 (0.11-0.59); MONO% 11.3 % (1.7-9.3); MPV 9.5 FL (7.4-10.4); NEUT# 5.73 X1000 (1.4-6.5); NEUT% 60.6 % (42.2-75.2); PLT 278 X1000 (130-400); RBC 4.62 XMIL (4.7-6.1); RDW 13.7 % (11.5-14.5); WBC 9.47 X1000 (4.8-10.8)
[2019-08-27 01:20] LABS: INR 0.89; PROTIME 12.5 Seconds (11.0-16.0)
[2019-08-27 01:21] LABS: PTT 30.7 Seconds (22.3-41.8)
[2019-08-27 01:48] LABS: AGAP 11; ALBUMIN 4.3 g/dL (3.5-5.0); ALKALINE PHOSPHATASE 65 U/L (32-122); AMYLASE 71 U/L (20-200); BUN 14 mg/dL (8-22); CALCIUM 9.5 mg/dL (8.8-10.2); CHLORIDE 105 mmol/L (98-107); CK PROFILE 51 U/L (24-204); COSMO 284; CREATININE 0.9 mg/dL (0.7-1.2); ESTIMATED GFR > 60; GLUCOSE 132 mg/dL (70-104); GOT 18 U/L (10-34); GPT 18 U/L (10-44); LIPASE 40 U/L (13-60); POTASSIUM 4.4 mmol/L (3.5-5.1); SODIUM 141 mmol/L (136-145); TCO2 26 mmol/L (25-35); TOTAL PROTEIN 7.9 g/dL (6.3-8.3)
[2019-08-27] MEDS ORDERED: G.I. COCKTAIL PO ONE (03:59)
--- NOTE | 2019-08-27 05:11 | EKG Report ---
Test Performed on : 08/27/2019 00:47:55 AM Test Reason : cp Blood Pressure : / mmHG Vent. Rate : 069 BPM Atrial Rate : 069 BPM P-R Int : 202 ms QRS Dur : 168 ms QT Int : 450 ms P-R-T Axes : 084 -25 138 degrees QTc Int : 482 ms Normal sinus rhythm. Left bundle branch block Abnormal ECG When compared with ECG of 02-JAN-2019 06:56, No significant change was found Unconfirmed Result
[2019-08-27] MEDS ORDERED: NITROGLYCERIN TOP ONE (05:34)
--- NOTE | 2019-08-27 05:45 | EKG Report ---
Test Performed on : 08/27/2019 05:31:41 AM Test Reason : CP Blood Pressure : / mmHG Vent. Rate : 052 BPM Atrial Rate : 052 BPM P-R Int : 198 ms QRS Dur : 166 ms QT Int : 496 ms P-R-T Axes : 041 -34 164 degrees QTc Int : 461 ms Sinus bradycardia. Left axis deviation Left bundle branch block Abnormal ECG When compared with ECG of 27-AUG-2019 00:47, (Unconfirmed) No significant change was found Unconfirmed Result
[2019-08-27] MEDS ORDERED: DILAUDID IV ONE (07:21)
[2019-08-27] MEDS ORDERED: GOLYTELY PO ONE (09:33)
--- NOTE | 2019-08-27 10:28 | Diag Imaging Result Doc PS360 ---
EXAM: CT ABD/PELVIS W/IV CONT ONLY INDICATION: abdominal pain TECHNIQUE: This exam was performed using automated exposure control, adjustment of mA or kV according to patient size, and/or use of iterative reconstruction technique. COMPARISON: 08/10/2019 FINDINGS: There is trace pericardial fluid, stable. The liver, gallbladder, spleen, pancreas, and adrenal glands are essentially unremarkable. There are a few tiny renal cysts bilaterally. There is a focus of renal cortical scarring on the left. The kidneys are unremarkable, otherwise. The urinary bladder appears normal. The appendix is normal. There is mild uncomplicated diverticulosis coli. No focal bowel wall thickening or bowel obstruction is identified. The remainder of the GI tract is grossly unremarkable. There is a stable moderate-sized umbilical hernia that contains only fat. There is moderate aortoiliac atherosclerotic calcification. There is no evidence of acute osseous abnormality. IMPRESSION: Stable incidental/nonacute findings detailed above. No evidence of acute pathology by CT. Electronically signed by Ton Claire 08/27/2019 10:25 AM
[2019-08-27] MEDS ORDERED: DULCOLAX PR ONE (12:21)
[2019-08-27] MEDS ORDERED: ZOFRAN IV PRN (12:22)
[2019-08-27] MEDS ORDERED: TYLENOL PO PRN (12:22)
[2019-08-27] MEDS: NORCO-7.5 PO PRN ×2 (14:12→23:03)
[2019-08-27] MEDS: COREG PO SCH ×2 (14:12→23:00)
[2019-08-27] MEDS: ALDACTONE PO SCH (14:12)
[2019-08-27] MEDS: ASPIRIN PO SCH (14:12)
[2019-08-27] MEDS: NORVASC PO SCH (14:13)
[2019-08-27] MEDS: ENTRESTO 24 MG-26 MG TABLET PO SCH ×2 (14:13→22:59)
--- NOTE | 2019-08-27 17:02 | HISTORY AND PHYSICAL ---
PRIMARY CARE PROVIDER: DR. Huang. CHIEF COMPLAINT: Abdominal pain with nausea and vomiting. HISTORY OF PRESENT ILLNESS: Mr. Anton Hernandez is a 63-year-old morbidly obese male with a medical history of CAD, [place], hypertension, CHF, GERD. He states that for at least one month he has had issues with constipation and heartburn. Around 11 p.m. last night the heartburn was so severe he woke up with acid in his mouth, nausea, some vomiting and dry heaving, dizziness, and shortness of breath. He admits to eating heavy meals late in the evening. His last bowel movement was three days ago. He claims that he has tried everything for his constipation including MiraLAX, Mag citrate, stool softeners. The report is that he had chest pain, but the chest pain was acid from acid reflux. Apparently, he was supposed to have a colonoscopy. It was never performed because of his history of congestive heart failure, is what he said. But, he probably would benefit from having an EGD even as an outpatient. We will get him having bowel movement and then he will need to be set up as an outpatient to see Dr. Kumar. A CT of the abdomen does not show any acute findings. PAST MEDICAL HISTORY: 1. Congestive heart failure diagnosed back in December of this year with an ejection fraction of 25%. He follows with Dr. Michael. 2. GERD. 3. CAD with history of TX, but no stents, only was treated medically. I believe that was in 2006. 4. Hyperlipidemia. 5. Hypertension. SURGICAL HISTORY: 1. Hemorrhoidectomy. 2. Stress test in January 2019. SOCIAL HISTORY: He smoked one pack per day for 20 years, started at the age of 11 and quit by the time he was 30. No alcohol. No illicit drug use. He is retired or on disability from being a [employer] worker. Raises his granddaughter. FAMILY HISTORY: Father had unknown cancer. Mother had Oliverio's disease. ALLERGIES: Sulfa causes rash. HOME MEDICATIONS: 1. Pravachol 20 mg p.o. nightly. 2. Amlodipine besylate 5 mg p.o. daily. 3. Coreg 12.5 mg p.o. twice daily. 4. Desyrel 150 mg p.o. nightly. 5. Entresto 49/51 tablet p.o. twice daily. 6. Nexium 40 mg p.o. daily. 7. Spironolactone 12.5 mg p.o. daily. 8. Aspirin 81 mg p.o. daily. REVIEW OF SYSTEMS: Fourteen point review of systems are complete and all were negative except for those mentioned above in the HPI. He also complains of generalized abdominal pain. PHYSICAL EXAMINATION: VITAL SIGNS: Temperature 98.2 degrees, heart rate 52, respiratory rate 18, blood pressure 139/52, O2 saturation 94% on 2 L nasal cannula. He 5 feet 6 inches tall, 243 pounds with a BMI of 39.3. GENERAL: Mr. Anton Hernandez is a 63-year-old male. He is in no acute distress. He is able answer questions appropriately. PHYSICAL EXAMINATION: HEENT: Atraumatic, normocephalic. Pupils equal, round, reactive to light. Extraocular movements intact. Mucous membranes are moist. NECK: Trachea midline. CARDIOVASCULAR: S1, S2. Bradycardic rate and rhythm. No rubs, gallops, murmurs. No lower extremity edema. There are +2 dorsalis and radial pulses. Negative for JVD or carotid bruits. PULMONARY: Clear to auscultate bilateral breath sounds. No accessory muscle use or work of breathing noted. GI: Soft. Tender bilateral lower quadrants. Positive bowel sounds x4. EXTREMITIES: Moves all extremities equally. Full range of motion. NEUROLOGIC: A and O x3. Follows commands. Sensory is intact. SKIN: Warm, dry, intact. LABORATORY DATA: White blood cells 9,000, hemoglobin 14, hematocrit 42, platelet count 278,000. INR 0.89, PTT 30.7. Sodium 141, potassium 4.4, BUN 14, creatinine 0.9, glucose 132, calcium 9.5, bilirubin 0.30, AST 18, ALT 18. CK 51. Troponin less than 0.01 x2. ProBNP 101. Albumin is 4.3, lipase 40, lactate 0.5. IMAGING: Abdominal and pelvic CT: No acute findings. EKG: Sinus bradycardia, rate 52, QTc 461. ASSESSMENT AND PLAN: 1. Abdominal pain with constipation and severe reflux symptoms. He is going to get some GoLYTELY. He will get started on several things to help him have a bowel movement. Once he has a bowel movement, he should be able to go home. He will need to continue with the proton pump inhibitor for the reflux. 2. Chronic systolic congestive heart failure. No acute exacerbation at this time. 3. Hypertension. Home medications continued. 4. Hyperlipidemia. Again, home medications are continued. 5. Deep venous thrombosis prophylaxis. SCDs. Dictated by DAWN Gibbs for Angelo Neumann MD Addendum: Patient seen and examined by myself. Agree with DAWN note. It reflects my assessment and plan. Patient is being admitted to hospital for abdominal pain secondary to constipation. Will provide stool softeners and he has bowel movements will discharge him. cc: DAWN Gibbs MD [facility]
[2019-08-27] MEDS ORDERED: DESYREL PO SCH (21:00)
[2019-08-27] MEDS ORDERED: PRILOSEC PO SCH (21:00)
[2019-08-27] MEDS ORDERED: PRAVACHOL PO SCH (21:00)
[2019-08-27] MEDS: PERICOLACE PO SCH (23:00)
[2019-08-27] MEDS: LACTULOSE PO SCH (23:00)
[2019-08-27] MEDS: MIRALAX PO SCH (23:00)
[2019-08-28 06:08] LABS: BASO# 0.01 X1000 (0.0-0.2); BASO% 0.1 % (0.0-0.8); EOS# 0.13 X1000 (0.0-0.7); EOS% 1.6 % (0.0-10.0); HEMATOCRIT 39.8 % (42.0-52.0); HEMOGLOBIN 12.8 g/dL (14.0-18.0); IMM GRAN# 0.01 X1000 (0.0-0.04); IMM GRAN% 0.1 % (0.0-0.5); LYMPH# 1.47 X1000 (1.2-3.4); LYMPH% 18.4 % (20.5-51.1); MCH 30.5 PG (27-31); MCHC 32.2 g/dL (33-37); MONO# 0.94 X1000 (0.11-0.59); MONO% 11.8 % (1.7-9.3); MPV 9.6 FL (7.4-10.4); NEUT# 5.44 X1000 (1.4-6.5); PLT 229 X1000 (130-400); RBC 4.19 XMIL (4.7-6.1); RDW 13.6 % (11.5-14.5)
[2019-08-28 06:24] LABS: AGAP 10; ALKALINE PHOSPHATASE 60 U/L (32-122); BUN 12 mg/dL (8-22); CALCIUM 9.1 mg/dL (8.8-10.2); CHLORIDE 102 mmol/L (98-107); COSMO 281; CREATININE 0.9 mg/dL (0.7-1.2); ESTIMATED GFR > 60; GLUCOSE 105 mg/dL (70-104); GOT 13 U/L (10-34); GPT 14 U/L (10-44); MAGNESIUM 2.2 mg/dL (1.5-2.7); POTASSIUM 3.8 mmol/L (3.5-5.1); SODIUM 141 mmol/L (136-145); TCO2 29 mmol/L (25-35); TOTAL PROTEIN 7.2 g/dL (6.3-8.3)
[2019-08-28] MEDS ORDERED: TYLENOL PO PRN (06:45)
[2019-08-28] MEDS ORDERED: PRILOSEC PO SCH (07:00)
[2019-08-28 07:40] VITALS: BP 149/59
[2019-08-28] MEDS: MIRALAX PO SCH (08:28)
[2019-08-28] MEDS: LACTULOSE PO SCH (08:28)
[2019-08-28] MEDS: NORVASC PO SCH (08:28)
[2019-08-28] MEDS: ASPIRIN PO SCH (08:29)
[2019-08-28] MEDS: ALDACTONE PO SCH (08:29)
[2019-08-28] MEDS: COREG PO SCH (08:29)
[2019-08-28] MEDS: ENTRESTO 24 MG-26 MG TABLET PO SCH (08:29)
[2019-08-28] MEDS: PERICOLACE PO SCH (08:29)
--- NOTE | 2019-08-29 09:57 | DISCHARGE SUMMARY ---
ADMISSION DATE: 08/27/2019 DISCHARGE DATE: 08/28/2019 CONSULTATIONS: None. PERTINENT PROCEDURES: Abdomen and pelvis CT. Stable, incidental, nonacute findings. No evidence of acute pathology by CT. DISCHARGE DIAGNOSES: 1. Abdominal pain with constipation and severe reflux symptoms. The patient was given GoLYTELY and several other things help him have a bowel movement. The patient has had 3 bowel movements since admission and will be discharged home today with continued bowel regimen. 2. Chronic systolic heart failure. No acute exacerbation. 3. Hypertension. Continue home medications. 4. Hyperlipidemia. Continue home medications. HOSPITAL COURSE: Briefly, Mr. Hernandez is a 63-year-old morbidly obese, male with a past medical history of coronary artery disease, [place], hypertension, CHF, GERD, who reported over the past month an issue with constipation and heartburn. He reported the night before admission. His heartburn was so severe he woke up with acid in his mouth, nausea with some vomiting, dry heaving, dizziness and shortness of breath. He admitted to eating heavy meals late in the evening. His last bowel movement had been 3 days prior. He had tried everything for his constipation including MiraLAX, Mag citrate and stool softeners. The report is that he had chest pain, but the chest pain was acid reflux. Apparently, he was supposed to have had a colonoscopy, but it was never performed secondary to congestive heart failure per patient report. He was initiated on a bowel regimen. A CT of the abdomen did not show any acute findings. He has had 3 bowel movements since admission and he will be discharged home to follow up with GI as an outpatient. VITAL SIGNS: At time of discharge, temperature was 97.7 degrees, heart rate 55, respirations 16, blood pressure 149/59, O2 is 96% on room air. DISCHARGE DIET: Healthy heart. DISCHARGE MEDICATIONS: 1. Pravachol 20 mg p.o. at bedtime. 2. Norvasc 5 mg p.o. daily. 3. Coreg 12.5 mg p.o. b.i.d. 4. Desyrel 150 mg p.o. at bedtime. 5. Entresto 49 mg-51 mg 1 each p.o. b.i.d. 6. Nexium 40 mg p.o. daily. 7. Spironolactone 12.5 mg p.o. daily. 8. Aspirin 81 mg p.o. daily. 9. Lactulose 30 mL p.o. b.i.d. p.r.n. constipation. 10. Sennosides 2 each p.o. b.i.d. FOLLOWUP: Mr. Hernandez is being discharged back home with self care. He is to follow up with his primary care, Dr. Marcin Huang, who can set him up with an outpatient EGD/colonoscopy. He can return to the ED or call 911 for any worsening of symptoms. He has been advised on diet and weight loss as well as following GERD lifestyle changes, small frequent meals and sitting up at least 2 hours after meals. Dictated by DAWN Patel for Angelo Neumann MD Addendum: Patient seen and examined by myself. Agree with DAWN note. It reflects my assessment and plan. Patient is being discharged in stable condition. Follow up with his PCP in a week. cc: Angelo Neumann MD [facility]
== END 2019-08-28 11:17 | disposition home or self-care (01) ==
LOC: P.MEDSURG 00:31 → P.ED 00:31
PROVIDERS: ATTEND Internal Medicine